=== PATIENT | male | born 1975 | race Caucasian/White ===

== ENCOUNTER → 2020-02-21 14:29 | Outpatient (BNVA) | payer OTHER, SELFPAY | PROVIDERS: Visit Provider Surgery Vascular Surgery | DX: Z76.89 Persons encountering health services in other specified circumstances (principal) ==

== ENCOUNTER 2020-02-28 08:07 | Outpatient (REF) | payer OTHER, SELFPAY ==
--- NOTE | 2020-02-28 08:12 | US_ITS ---
EXAMINATION: RIGHT and LEFT LOWER EXTREMITY VENOUS ULTRASOUND (Reflux Exam) CLINICAL INDICATION: leg pain and varicose veins. COMPARISON: None. TECHNIQUE: Color flow triplex imaging and compression Doppler was performed to evaluate both the deep and the superficial systems bilaterally. To evaluate the superficial system, the examination was performed in the upright position. Color-flow Doppler ultrasound and compression ultrasound were utilized. In addition, maneuvers were utilized to demonstrate reflux. FINDINGS: 1. DEEP VENOUS ULTRASOUND OF THE RIGHT LOWER EXTREMITY: Respiratory variation, normal compression and augmented flow are noted in the right common femoral vein as well as the right popliteal vein and there is no evidence of deep venous thrombosis at these locations. There is no evidence of reflux in the deep system in either the common femoral vein or the popliteal vein. There is no evidence of a Michelle's cyst. 2. SUPERFICIAL ULTRASOUND WITH DOPPLER OF RIGHT LOWER EXTREMITY: The right great saphenous vein at the saphenofemoral junction measures 9 mm, at the mid thigh 5 mm, [id number] 5 mm, [id number] 4 mm, at mid calf 2 mm and at the ankle measures 3 mm. There is reflux in the great saphenous vein measuring 2.3 seconds in the mid thigh, 2.9 seconds above the knee and 3.2 seconds at the knee. The right small saphenous vein measures 4-6 mm and shows no reflux. There are perforators in the proximal and mid calf measuring 4 and 3 mm that do not demonstrate reflux. There is a varicosity that measures 7 mm and communicate with the right greater saphenous vein at the knee and demonstrate 3.3 seconds reflux. There are varicosities that communicate with the lesser saphenous vein measuring 8 mm and do not demonstrate reflux and two that measure 4 mm and demonstrate approximately 3 seconds reflux 3. DEEP VENOUS ULTRASOUND OF THE LEFT LOWER EXTREMITY: Respiratory variation, normal compression and augmented flow are noted in the left common femoral vein as well as the left popliteal vein and there is no evidence of deep venous thrombosis at these locations. There is no evidence of reflux in the deep system in either the common femoral vein or the popliteal vein. . There is no evidence of a Michelle's cyst. 4. SUPERFICIAL ULTRASOUND WITH DOPPLER OF LEFT LOWER EXTREMITY: Left great saphenous vein at the saphenofemoral junction measures 9 mm, at the mid thigh 4 mm, [id number] 3 mm, [id number]-[id number] 3 mm, at mid calf to mm and at the ankle measures 2 mm. There is reflux in the left greater saphenous vein in the mid calf and ankle measuring 1.6 and 1.7 seconds. The left small saphenous vein measures 2 mm and shows no reflux. There is a manager primary in the mid thigh that measures 3 mm and does not demonstrate reflux. US/US venous duplex LE BI IMPRESSION: 1. No evidence of reflux or thrombus in the common femoral veins or popliteal veins bilaterally, right greater than left. 2. Bilateral greater saphenous vein reflux. Right-sided varicosities that demonstrate reflux.
== END 2020-02-28 08:08 | disposition home or self-care (01) ==
LOC: HO.US 08:07
PROVIDERS: PCP Pediatrics; Visit Provider Surgery Vascular Surgery
DX: I83.11 Varicose veins of right lower extremity with inflammation (principal)
CPT/HCPCS: 93970

== ENCOUNTER → 2020-03-13 13:59 | Outpatient (BNVA) | payer OTHER, SELFPAY | PROVIDERS: PCP Pediatrics; Visit Provider Surgery Vascular Surgery | DX: Z76.89 Persons encountering health services in other specified circumstances (principal) ==

== ENCOUNTER → 2020-04-25 07:44 | Outpatient (BNVA) | payer OTHER, SELFPAY | PROVIDERS: PCP Pediatrics; Visit Provider Surgery Vascular Surgery | DX: I83.11 Varicose veins of right lower extremity with inflammation (principal) | CPT/HCPCS: 36482 ==

== ENCOUNTER 2020-04-28 15:32 | Outpatient (REF) | payer OTHER, SELFPAY ==
--- NOTE | ~2020-04-28 | US_ITS ---
EXAMINATION: US VENOUS ULTRASOUND WITH DOPPLER LOWER EXTREMITY, RIGHT CLINICAL INFORMATION: Post vena seal procedure COMPARISON: Previous exam February 2020 TECHNIQUE: Ultrasound of the deep veins is performed from the hip to the calf with compression sonography and color and pulse Doppler assessment. Spectral analysis with color-flow imaging is performed. FINDINGS: There is normal venous compression and respiratory variation and augmented flow. The visualized common femoral vein, superficial femoral vein, profunda femoral vein, popliteal vein, and the trifurcation region shows no evidence of deep venous thrombosis. There is echogenic material seen in the right greater saphenous vein post vena seal procedure. This is 2 cm from the saphenofemoral junction. There is no popliteal fossa cyst. US/US venous duplex LE RT IMPRESSION: No DVT demonstrated in the right lower extremity. Echogenic material in the right greater saphenous vein 2 cm from the saphenofemoral junction post vena seal procedure.
== END 2020-04-28 15:33 | disposition home or self-care (01) ==
LOC: HO.US 15:32
PROVIDERS: Visit Provider Surgery Vascular Surgery
DX: M79.604 Pain in right leg (principal); I87.2 Venous insufficiency (chronic) (peripheral); Z98.890 Other specified postprocedural states
CPT/HCPCS: 93971

== ENCOUNTER → 2020-05-08 15:42 | Outpatient (BNVA) | payer OTHER, SELFPAY | PROVIDERS: PCP Pediatrics; Visit Provider Surgery Vascular Surgery ==